=== PATIENT | female | born 1950 | race Caucasian/White ===

== ENCOUNTER 2023-02-20 07:37 | Day surgery (SDC) | payer OTHER, MEDICARE ==
[2023-02-17 15:45] VITALS: BMI 32.5
[2023-02-20] MEDS ORDERED: PROPOFOL 120 ML ONE (07:43)
[2023-02-20 11:11] VITALS: RESP 16; TEMP 97.7
[2023-02-20 11:17] VITALS: BP 137/68; PULSE 68
== END 2023-02-20 10:00 | disposition home or self-care (01) ==
LOC: FASU-ENDO 07:37
PROVIDERS: ATTEND Internal Medicine Gastroenterology
PROC: 0DJD8ZZ Inspection of Lower Intestinal Tract, Via Natural or Artificial Opening Endoscopic (ICD-10-PCS; principal; 2023-02-20 08:48)
DX: Z12.11 Encounter for screening for malignant neoplasm of colon (principal); K57.30 Diverticulosis of large intestine without perforation or abscess without bleeding; Z86.010 Personal history of colon polyps